=== PATIENT | male | born 1975 | race Caucasian/White ===

== ENCOUNTER → 2021-11-26 12:44 | Outpatient (CLI) | payer OTHER, SELFPAY ==
[2021-11-26 14:04] LABS: Hemoglobin A1C% w Est Avg Glu 9.7 % (4.0-6.0)
[2021-11-26 14:53] LABS: Alanine Aminotransferase 30 IU/L (<50); Albumin 3.9 g/dL (3.5-5.0); Albumin Globulin Ratio 1.7 (1.0-2.8); Alkaline Phosphatase 84 U/L (38-126); Aspartate Aminotransferase 31 IU/L (17-59); BUN Creatinine Ratio 11.8 (6-22); Bilirubin Total 0.6 mg/dL (0.2-1.3); Blood Urea Nitrogen 11 mg/dL (9-20); Carbon Dioxide 28 mmol/L (22-32); Chloride 100 mmol/L (98-107); Cholesterol 143 mg/dL (140-199); Estimated Glomerular Filt Rate > 60 mL/min (>60); Globulin 2.3 g/dL (1.7-4.1); Glucose 212 mg/dL (70-100); HDL Cholesterol 42 mg/dL (40-60); HEMOLYSIS < 15 (0-50); LDL Cholesterol Calculated 73 mg/dL (<100); Potassium 4.4 mmol/L (3.4-5.1); Sodium 137 mmol/L (137-145); Total Protein 6.2 g/dL (6.3-8.2); Triglycerides 139 mg/dL (35-150); Uric Acid 6.6 mg/dL (3.5-8.5)
[2021-11-26 16:06] LABS: Creatinine Urine Random 134.3 mg/dL
[2021-11-26 16:09] LABS: Microalbumi Creatinin Ratio Ur 5.2 ug/mg CR (<30); Microalbumin Urine Random 0.7 mg/dL (0-1.6)
== END ==
PROVIDERS: Family Provider Family Medicine; PCP Internal Medicine; Referring Provider Internal Medicine; Visit Provider Internal Medicine
DX: E11.9 Type 2 diabetes mellitus without complications (principal); I10 Essential (primary) hypertension; M10.9 Gout, unspecified
CPT/HCPCS: 36415; 80053; 80061; 82043; 82570; 83036; 84550

== ENCOUNTER → 2022-04-25 10:15 | Outpatient (CLI) | payer BC, OTHER, SELFPAY ==
[2022-04-25 12:51] LABS: BUN Creatinine Ratio 16.9 (6-22); Blood Urea Nitrogen 13 mg/dL (9-20); Calcium 9.1 mg/dL (8.4-10.2); Carbon Dioxide 28 mmol/L (22-32); Chloride 95 mmol/L (98-107); Estimated Glomerular Filt Rate > 60 mL/min (>60); Glucose 319 mg/dL (70-100); HEMOLYSIS < 15 (0-50); Potassium 3.8 mmol/L (3.4-5.1); Sodium 135 mmol/L (137-145)
[2022-04-25 14:37] LABS: Hemoglobin A1C% w Est Avg Glu 10.9 % (4.0-6.0)
== END ==
PROVIDERS: Family Provider Family Medicine; PCP Internal Medicine; Referring Provider Internal Medicine; Visit Provider Internal Medicine
DX: E11.9 Type 2 diabetes mellitus without complications (principal)
CPT/HCPCS: 36415; 80048; 83036

== ENCOUNTER → 2022-07-29 10:34 | Outpatient (CLI) | payer BC, OTHER, SELFPAY ==
[2022-07-29 12:41] LABS: Blood Urea Nitrogen 13 mg/dL (9-20); Calcium 9.2 mg/dL (8.4-10.2); Carbon Dioxide 32 mmol/L (22-32); Chloride 95 mmol/L (98-107); Estimated Glomerular Filt Rate > 60 mL/min (>60); Glucose 293 mg/dL (70-100); HEMOLYSIS < 15 (0-50); Sodium 135 mmol/L (137-145)
[2022-07-30 09:59] LABS: Labcorp Hemoglobin (Hb) A1c 11.8 % (4.8-5.6)
== END ==
PROVIDERS: Family Provider Family Medicine; PCP Internal Medicine; Referring Provider Internal Medicine; Visit Provider Internal Medicine
DX: E11.9 Type 2 diabetes mellitus without complications (principal); I10 Essential (primary) hypertension; Z79.4 Long term (current) use of insulin
CPT/HCPCS: 80048; 83036

== ENCOUNTER → 2022-11-18 11:09 | Outpatient (CLI) | payer BC, OTHER, SELFPAY ==
[2022-11-18 13:27] LABS: BUN Creatinine Ratio 22.4 (6-22); Blood Urea Nitrogen 17 mg/dL (9-20); Calcium 9.3 mg/dL (8.4-10.2); Carbon Dioxide 28 mmol/L (22-32); Chloride 97 mmol/L (98-107); Estimated Glomerular Filt Rate > 60 mL/min (>60); Glucose 246 mg/dL (70-100); HEMOLYSIS < 15 (0-50); Potassium 3.6 mmol/L (3.4-5.1); Sodium 135 mmol/L (137-145)
[2022-11-20 07:43] LABS: Labcorp Hemoglobin (Hb) A1c 9.8 % (4.8-5.6)
== END ==
PROVIDERS: Family Provider Family Medicine; PCP Internal Medicine; Referring Provider Internal Medicine; Visit Provider Internal Medicine
DX: E11.9 Type 2 diabetes mellitus without complications (principal); I10 Essential (primary) hypertension
CPT/HCPCS: 36415; 80048; 83036

== ENCOUNTER → 2023-05-12 14:18 | Outpatient (CLI) | payer BC, OTHER, SELFPAY ==
[2023-05-12 15:29] LABS: Add Manual Diff / Slide Review NO; Basophils Absolute Auto 0 /uL (0-100); Basophils Percent Auto 0.4 % (0-2); Eosinophils Absolute Auto 100 /uL (0-450); Eosinophils Percent Auto 1.7 % (2-4); Hematocrit 44.4 % (41-53); Hemoglobin 14.7 g/dL (13.5-17.5); Lymphocytes Absolute Auto 1400 /uL (1100-4500); Lymphocytes Percent Auto 24.3 % (25-40); Mean Corpuscular Hemoglobin 29.1 PG (26-34); Mean Corpuscular Volume 88.3 fL (80-100); Monocytes Absolute Auto 500 /uL (0-900); Monocytes Percent Auto 8.8 % (3-14); Neutrophils Absolute Auto 3800 /uL (1500-7000); Neutrophils Percent Auto 64.8 % (50-75); Platelet Count 205 X10^3/uL (150-400); Red Blood Cell Count 5.03 X10^6/uL (4.5-5.9); Red Cell Distribution Width 13.3 % (11.6-14.8); White Blood Cell Count 5.8 X10^3/uL (4.5-11.0)
[2023-05-12 15:41] LABS: Hemoglobin A1C% w Est Avg Glu 9.3 % (4.0-6.0)
[2023-05-12 16:31] LABS: Alanine Aminotransferase 20 IU/L (<50); Albumin 4.2 g/dL (3.5-5.0); Albumin Globulin Ratio 1.4 (1.0-2.8); Alkaline Phosphatase 94 U/L (38-126); Aspartate Aminotransferase 20 IU/L (17-59); BUN Creatinine Ratio 20.3 (6-22); Bilirubin Total 0.7 mg/dL (0.2-1.3); Blood Urea Nitrogen 14 mg/dL (9-20); Calcium 9.4 mg/dL (8.4-10.2); Carbon Dioxide 29 mmol/L (22-32); Chloride 101 mmol/L (98-107); Cholesterol 147 mg/dL (140-199); Estimated Glomerular Filt Rate > 60 mL/min (>60); Globulin 2.9 g/dL (1.7-4.1); Glucose 240 mg/dL (70-100); HDL Cholesterol 56 mg/dL (40-60); HEMOLYSIS < 15 (0-50); LDL Cholesterol Calculated 76 mg/dL (<100); Sodium 136 mmol/L (137-145); Total Protein 7.1 g/dL (6.3-8.2); Triglycerides 74 mg/dL (35-150)
[2023-05-12 16:32] LABS: Potassium 4.3 mmol/L (3.4-5.1)
== END ==
PROVIDERS: Family Provider Family Medicine; PCP Internal Medicine; Referring Provider Internal Medicine; Visit Provider Internal Medicine
DX: E11.65 Type 2 diabetes mellitus with hyperglycemia (principal); Z79.4 Long term (current) use of insulin; I10 Essential (primary) hypertension; E11.9 Type 2 diabetes mellitus without complications
CPT/HCPCS: 36415; 80053; 80061; 82043; 82570; 83036; 85025

== ENCOUNTER → 2023-08-13 09:11 | Outpatient (CLI) | payer BC, SELFPAY ==
[2023-08-13 09:58] LABS: COVID-19 CEPHEID 4-PLEX PCR Negative (Negative); Influenza A - CEPHEID Flu A NEGATIVE (NEGATIVE); Influenza B - CEPHEID Flu B NEGATIVE (NEGATIVE); Respiratory Syncytial Virus Negative (Negative)
== END ==
PROVIDERS: Family Provider Family Medicine; PCP Internal Medicine; Visit Provider Nurse Practitioner Family
DX: R05.1 Acute cough (principal)
CPT/HCPCS: 0241U

== ENCOUNTER → 2023-11-17 15:15 | Outpatient (CLI) | payer MEDICAID, SELFPAY ==
[2023-11-17 17:00] LABS: BUN Creatinine Ratio 14.8 (6-22); Blood Urea Nitrogen 13 mg/dL (9-20); Calcium 9.7 mg/dL (8.4-10.2); Carbon Dioxide 28 mmol/L (22-32); Chloride 102 mmol/L (98-107); Estimated Glomerular Filt Rate > 60 mL/min (>60); Glucose 175 mg/dL (70-100); HEMOLYSIS < 15 (0-50); Potassium 4.3 mmol/L (3.4-5.1); Sodium 137 mmol/L (137-145)
[2023-11-17 21:33] LABS: Hemoglobin A1C% w Est Avg Glu 9.4 % (4.0-6.0)
== END ==
PROVIDERS: Family Provider Family Medicine; PCP Internal Medicine; Referring Provider Internal Medicine; Visit Provider Internal Medicine
DX: E11.65 Type 2 diabetes mellitus with hyperglycemia (principal); Z79.4 Long term (current) use of insulin; I10 Essential (primary) hypertension
CPT/HCPCS: 36415; 80048; 83036

== ENCOUNTER → 2024-02-16 10:10 | Outpatient (CLI) | payer OTHER, MEDICAID, SELFPAY ==
--- NOTE | 2024-02-16 10:13 | DI.RAD.S_ITS ---
PROCEDURE: XR LUMBAR SPINE 2-3V INDICATIONS: L4-5 pain/tender+ ant thigh pain/numb no injury TECHNIQUE: 3 views of the lumbar spine were acquired. COMPARISON: None. FINDINGS: Bones: 5 [id number] vertebrae are present. There is normal bony alignment. No vertebral body compression fractures. No suspicious bony lesions. Mild multilevel degenerative disc disease. Soft tissues: Overlying bowel gas pattern is normal. No suspicious soft tissue calcifications. IMPRESSION: No acute bony abnormality. Dictated by: Chana Perales MD, PhD on 02/16/2024 at 10:37 Approved by: Chana Perales MD, PhD on 02/16/2024 at 10:38
== END ==
PROVIDERS: Family Provider Family Medicine; PCP Internal Medicine; Referring Provider Student in an Organized Health Care Education/Training Program; Visit Provider Student in an Organized Health Care Education/Training Program
DX: M51.16 Intervertebral disc disorders with radiculopathy, lumbar region (principal)
CPT/HCPCS: 72100

== ENCOUNTER → 2024-04-08 14:22 | Outpatient (CLI) | payer MEDICAID, SELFPAY ==
--- NOTE | 2024-04-08 17:39 | DIAB.MNT ---
Initial Diabetes Medical Nutrition Therapy Assessment Name: Lucas Spears (Lalo) Dx: Type II Diabetes Date: 04/08/24 Time: 3-4p Dx: Type II Diabetes Provider: Angel Rosales Learning Style: Watching Lalo presents for initial DM visit. Reports PMH of DM x 20 years and FH of DM with both parents and paternal grandmother. [facility] [place] this was helpful. He liked discussing portions. He is interested in CGM. Will place a sample G7 today. Also reports his meter is not working, often getting ERROR messages. Provided a demo today, and suspect the error message may be from inadequate blood sample. After fingerstick and meter demo, BG was 146 after not eating anything since last night. Currently on MDI with recent hgA1c in the 9-9.8% over the last year.. Diet Recall: 12-1p: leftovers or sugar sweetened cereal (does not like cheerios) sn: nothing or fruit 6-7p: burger and fries homemade or PRO with veggies and 2c CHO sn: nothing or cereal or strawberry ice cream water 16.9oz x 2 coke zero milk occasional Anthropometrics: Ht: 69 Wt: 277.5# 02/2024 Physical Activity: Reports activity with [employer], ie bowling, bocci ball, basketball Self-Monitoring Blood Glucose: None recently. Has supplies. brought today. Returned demo with success. Helped with self placement of CGM sample. Reports difficulty getting this covered with MCR. Likely needs DME. Diabetes Medications: 1000mg Metformin BID 70u Lantus 7u Lispro TID 30mg Pioglitizone Pertinent Labs: HgA1c: 9.4% 10/2023 Past Medical History: (Last Reviewed 02/16/24 @ 12:03 by Elizabeth Gordon PA-C) Autism Essential hypertension Gout Long-term insulin use Tourette syndrome Type 2 diabetes mellitus Nutrition Rx: Carbohydrates: Meal:45-60g Snack:15-30g Nutrition Diagnosis: - Excessive CHO intake r/t nutrition knowledge deficit aeb diet recall Intervention: This participant was very receptive. Provided appropriate educational handouts. Discussed the following topics: Completed intake assessment. Discussed barriers to care. SMBG return demo, importance of amt of blood sample to avoid error CGM Sample Reviewed CGM use and equipment Discussed when to check blood sugars using finger stick Reviewed high and low blood sugar signs/symptoms and treatment options Provided education for self-administration of CGM placement Educated patient on alarm settings Discussed how to remove and dispose of equipment Plate Method, impact of macronutrients on blood sugar Recommended servings for carbohydrates at meals and snacks Created SMART goals for patient self-care and success. Goals: Wear CGM x 10.5 days Try breakfast with toast and PB or eggs vs cereal Try to keep CHO to 1-1.5 at meals Follow-up: [facility] follow-up in 2-3 weeks Juana Klein RDN, SHARONA Certified Diabetes Care and Training Executive P: [phone] Thank you for this referral
== END ==
PROVIDERS: Family Provider Internal Medicine; PCP Internal Medicine; Referring Provider Internal Medicine
DX: E11.9 Type 2 diabetes mellitus without complications (principal); Z83.3 Family history of diabetes mellitus; Z71.3 Dietary counseling and surveillance; Z79.84 Long term (current) use of oral hypoglycemic drugs; Z79.4 Long term (current) use of insulin
CPT/HCPCS: 97802

== ENCOUNTER → 2024-04-28 12:29 | Outpatient (CLI) | payer MEDICAID, OTHER, SELFPAY ==
--- NOTE | 2024-06-10 07:54 | DIAB.MNTFU ---
Follow-up Diabetes Medical Nutrition Therapy Assessment Name: Lucas Spears (Lalo) Date: 04/28/24 Time: 1-130p Dx: Type II Diabetes Lalo presents for follow-up DM visit. Reports PMH of DM x 20 years and FH of DM with both parents and paternal grandmother. Previous DM education at [facility]. [place] this was helpful. He liked discussing portions. Liked CGM, states [address] company called him. Some barriers to getting personal CGM with insurance changes. Did have a low with CGm, but seems it was a false low. He called EMS and was found to not have hypoglycemia. Has changed his breakfast as discussed 2-3 days per week, reducing cereal intake. Did not have new HgA1c orders at the time of this visit. RD messaged PCP ETTA regarding this. UTD on eye exam and had a suspicious right eye finding. Has f/u this month with video specialist. Diet Recall: 12-1p:PB toast OR cereal sn: nothing or fruit 6-7p: 2 hot dogs OR leftovers OR bbq ribs with 0.5c potatoes and 2 TBS corn 10: nothing or large bowl cereal or 4 TBSstrawberry ice cream water 16.9oz x 2 coke zero milk occasional Anthropometrics: Ht: 69 Wt: 277.5# 02/2024 Physical Activity: walking 2-3x per week for 2 hours or yardwork Self-Monitoring Blood Glucose: Frequent elevations, especially after meals. Lows seem to be r/t false lows with sensor error toward the end of wear. TIR: 15% very [id number] high 46% in range 2% low 3% very low avmg/dl GMI: 7.5% std dev: 68 mg/dl variance: 38.4% Diabetes Medications: 1000mg Metformin BID 70u Lantus 7u Lispro TID 30mg Pioglitizone Pertinent Labs: HgA1c: 9.4% 10/2023 Past Medical History: (Last Reviewed 02/16/24 @ 12:03 by Elizabeth Gordon PA-C) Autism Essential hypertension Gout Long-term insulin use Tourette syndrome Type 2 diabetes mellitus Nutrition Rx: Carbohydrates: Meal:45-60g Snack:15-30g Nutrition Diagnosis: - Excessive CHO intake r/t nutrition knowledge deficit aeb diet recall- in progress Intervention: This participant was very receptive. Provided appropriate educational handouts. Discussed the following topics: Rule of 15 for lows and false lows recognition and using meter to verify Insulin recs per meal (small, med, large) to cover elevations HgA1c hx and goal Recommended servings for carbohydrates at meals and snacks Created SMART goals for patient self-care and success. Goals: Wear CGM x 10.5 days- met Try breakfast with toast and PB or eggs vs cereal- met Try to keep CHO to 1-1.5 at meals - met Try small, med, large insulin dose at meals- new Avoid cereal- new Provide ADS with new insurance info- new Follow-up: [facility] follow-up in 3-4 weeks Juana Klein RDN, SHARONA Certified Diabetes Care and Informatica Architect P: [phone] Thank you for this referral
== END ==
PROVIDERS: Family Provider Internal Medicine; PCP Internal Medicine; Referring Provider Internal Medicine
DX: E11.9 Type 2 diabetes mellitus without complications (principal); Z83.3 Family history of diabetes mellitus; Z79.84 Long term (current) use of oral hypoglycemic drugs; Z79.4 Long term (current) use of insulin; Z71.3 Dietary counseling and surveillance
CPT/HCPCS: 97803

== ENCOUNTER → 2024-05-12 10:09 | Outpatient (CLI) | payer OTHER, MEDICAID, SELFPAY ==
[2024-05-12 11:13] LABS: Hemoglobin A1C% w Est Avg Glu 8.4 % (4.0-6.0)
[2024-05-12 11:14] LABS: BUN Creatinine Ratio 13.8 (6-22); Blood Urea Nitrogen 12 mg/dL (9-20); Calcium 9.2 mg/dL (8.4-10.2); Carbon Dioxide 33 mmol/L (22-32); Chloride 98 mmol/L (98-107); Estimated Glomerular Filt Rate > 60 mL/min (>60); Glucose 282 mg/dL (70-100); HEMOLYSIS < 15 (0-50); Potassium 4.3 mmol/L (3.4-5.1); Sodium 137 mmol/L (137-145)
== END ==
PROVIDERS: Family Provider Internal Medicine; PCP Internal Medicine; Referring Provider Internal Medicine; Visit Provider Internal Medicine
DX: E11.65 Type 2 diabetes mellitus with hyperglycemia (principal); Z79.4 Long term (current) use of insulin; I10 Essential (primary) hypertension
CPT/HCPCS: 36415; 80048; 83036

== ENCOUNTER → 2024-06-09 16:41 | Outpatient (CLI) | payer MEDICAID, SELFPAY ==
[2024-06-09 17:20] LABS: Add Manual Diff / Slide Review NO; Basophils Absolute Auto 100 /uL (0-100); Basophils Percent Auto 1.5 % (0-2); Eosinophils Absolute Auto 100 /uL (0-450); Eosinophils Percent Auto 1.6 % (2-4); Hematocrit 44.5 % (41-53); Hemoglobin 14.5 g/dL (13.5-17.5); Lymphocytes Absolute Auto 1400 /uL (1100-4500); Lymphocytes Percent Auto 23.1 % (25-40); Mean Corpuscular HGB Conc 32.7 % (30-36); Mean Corpuscular Hemoglobin 28.6 PG (26-34); Mean Corpuscular Volume 87.6 fL (80-100); Monocytes Absolute Auto 500 /uL (0-900); Neutrophils Absolute Auto 4100 /uL (1500-7000); Neutrophils Percent Auto 65.8 % (50-75); Platelet Count 263 X10^3/uL (150-400); Red Blood Cell Count 5.08 X10^6/uL (4.5-5.9); Red Cell Distribution Width 13.1 % (11.6-14.8); White Blood Cell Count 6.2 X10^3/uL (4.5-11.0)
[2024-06-09 17:36] LABS: Alanine Aminotransferase 43 IU/L (<50); Albumin Globulin Ratio 1.7 (1.0-2.8); Alkaline Phosphatase 76 U/L (38-126); Aspartate Aminotransferase 35 IU/L (17-59); BUN Creatinine Ratio 9.1 (6-22); Bilirubin Total 1.1 mg/dL (0.2-1.3); Blood Urea Nitrogen 8 mg/dL (9-20); Calcium 9.4 mg/dL (8.4-10.2); Carbon Dioxide 32 mmol/L (22-32); Chloride 101 mmol/L (98-107); Estimated Glomerular Filt Rate > 60 mL/min (>60); Globulin 2.4 g/dL (1.7-4.1); Glucose 255 mg/dL (70-100); HEMOLYSIS < 15 (0-50); Potassium 4.3 mmol/L (3.4-5.1); Sodium 138 mmol/L (137-145); Total Protein 6.4 g/dL (6.3-8.2)
[2024-06-09 17:41] LABS: Erythrocyte Sedimentation Rate 9 MM/HR (0-15)
== END ==
LOC: LAB 16:42
PROVIDERS: Family Provider Internal Medicine; PCP Internal Medicine; Referring Provider Physician Assistant; Visit Provider Physician Assistant
DX: K52.9 Noninfective gastroenteritis and colitis, unspecified (principal)
CPT/HCPCS: 36415; 80053; 85025; 85651

== ENCOUNTER → 2024-06-21 13:41 | Outpatient (CLI) | payer MEDICARE, MEDICAID, SELFPAY ==
--- NOTE | 2024-06-21 14:06 | DIAB.MNTFU ---
Addendum entered by Juana Klein 06/21/24 15:00: Also reported expensive cost for CGM. GONSALO messaged [employer] for more information. Original Note: Follow-up Diabetes Medical Nutrition Therapy Assessment Name: Lucas Spears (Lalo) Date: 06/21/24 Time: 205-235p Dx: Type II Diabetes Lalo presents for follow-up DM visit. Reports PMH of DM x 20 years and FH of DM with both parents and paternal grandmother. Discontinued Metformin and recent BM issues have resolved. Plans to start Jardiance, will pickling drum operator today, is affordable. Trying to inject insulin according to meal size, ie small, med, large Cut down on cereal portion, but still eating regularly Reports still unable to access CGM due to cost. GONSALO messaged [employer] for info. Reports he is aware of potential SE with SGLT2i after chatting with Susan. Diet Recall: 12-1p: PB toast OR 2x per week cereal (raisin bran, shredded wheat, great grains) OR egg with nur/ham +/- bread sn: nothing or fruit 6-7p: chicken, rice or noodles or potatoes x 1c OR 1-2 hamburger +/- potatoes OR 2 hot dogs 10: 1c strawberry ice cream water 16.9oz x 2 coke zero milk occasional Anthropometrics: Ht: 69 Wt: 277.5# 02/2024 Physical Activity: walking 2-3x per week for 2 hours, yardwork, just finished up basketball, and starting track and field and bocce ball. Self-Monitoring Blood Glucose: Checking mid morning BG (low 200s) and 4 hours after eating (200-300). Previous Visit TIR: 15% very [id number] high 46% in range 2% low 3% very low avmg/dl GMI: 7.5% std dev: 68 mg/dl variance: 38.4% Diabetes Medications: 1000mg Metformin BID--- discontinued 70u Lantus 20u Lispro TID 30mg Pioglitizone 25mg Jardiance -- will start Pertinent Labs: HgA1c: 9.4% 10/2023 8.4% 04/2024 Past Medical History: (Last Reviewed 02/16/24 @ 12:03 by Elizabeth Gordon PA-C) Autism Essential hypertension Gout Long-term insulin use Tourette syndrome Type 2 diabetes mellitus Nutrition Rx: Carbohydrates: Meal:45-60g Snack:15-30g Nutrition Diagnosis: - Excessive CHO intake r/t nutrition knowledge deficit aeb diet recall- in progress Intervention: This participant was very receptive. Provided appropriate educational handouts. Discussed the following topics: Avoiding high sugar cereal SE with SGLT2i and importance of hydration Carb recs per meal Protein at meals/snacks Meal timing BG monitoring Created SMART goals for patient self-care and success. Goals: Try small, med, large insulin dose at meals- met Avoid cereal- not met Provide ADS with new insurance info- met Cut out raisin bran- new Try to have a 3p snack with protein- new rigger supervisor Jardiance- new Keep carbs to 1c or less at meals- new Aim for 3-4 water bottles per day- new Check FBG- new Follow-up: [facility] follow-up in 3-4 weeks Juana Klein RDN, SHARONA Certified Diabetes Care and Physician In Private Practice P: [phone] Thank you for this referral
== END ==
PROVIDERS: Family Provider Internal Medicine; PCP Internal Medicine; Referring Provider Internal Medicine
DX: E11.9 Type 2 diabetes mellitus without complications (principal); Z71.3 Dietary counseling and surveillance; Z83.3 Family history of diabetes mellitus; Z79.4 Long term (current) use of insulin; Z79.84 Long term (current) use of oral hypoglycemic drugs
CPT/HCPCS: 97803

== ENCOUNTER → 2024-08-31 13:46 | Outpatient (CLI) | payer MEDICARE, MEDICAID, SELFPAY ==
--- NOTE | 2024-08-31 14:02 | DIAB.FU ---
Follow-up: Personal CGM Placement Name: Lucas Spears (Lalo) Date: 08/31/24 Time: 2-230p Dx: Type II Diabetes Lalo presents for follow-up DM visit. Started Jardiance. No SE. States he is unsure if he and his provider have explored GLP1 rx. Has scheduled with endo but first available appt is March. Recent increase in hgA1c to 11.2%. Has not been wearing CGM due to troubleshooting access with insurance. Has now been approved. Brought in today for placement. States he has questions about insulin pumps since his friend has one. Endorses adequate support from his uncle at home, in learning pump use. This RD thinks he would be able to manage either Omnipod or 780g Medtronic pump, leaning toward 780g with ease of access to equipment and support. Does seem like he may first benefit from trial of GLP1, though he would like to explore the pump option to reduce injections. RD has messaged PCP this information. States he is rotating injection sites on abdomen. Denies any scar tissue at this time. Lalo has made diet and exercise changes since recent hgA1c. Diet Recall: 12-1p: Soup +/- apple 6-7p: chicken, rice or noodles or potatoes x 1c with corn or green beans or cabbage 10-11p: melon 2c or apple or banana water coke zero milk 8oz with meals Anthropometrics: Ht: 69 Wt: 281# 07/2024 277.5# 02/2024 Physical Activity: walking 2x per day for 1 hour, yardwork, just finished up track and field and [employer]. Self-Monitoring Blood Glucose: Checking FBG and ranging from 150-400mg/dl, often 200s per report. Brought personal CGm and reciever. Phone recently broke. Needs assistance programming blood bank manager and re-education on CGM placement/pairing. Diabetes Medications: 70u Lantus 20u Lispro 2-3x per day 30mg Pioglitizone 25mg Jardiance Pertinent Labs: HgA1c: 9.4% 10/2023 8.4% 04/2024 11.2% 06/2024 Past Medical History: (Last Reviewed 02/16/24 @ 12:03 by Elizabeth Gordon PA-C) Autism Essential hypertension Gout Long-term insulin use Tourette syndrome Type 2 diabetes mellitus Intervention: This participant was very receptive. Provided appropriate educational handouts. Discussed the following topics: CGM education and precautions, using blood bank manager Pairing CHO and protein GLP1 action and SE SGLT2i action and SE Rotating injection sites Insulin pump options Created SMART goals for patient self-care and success. Goals: Cut out raisin bran- met Try to have a 3p snack with protein- not met rigging up worker Jardiance- met Keep carbs to 1c or less at meals- met Aim for 3-4 water bottles per day- not discussed Check FBG- met Pair CHO and protein at HS snack- new Use blood bank manager for CGM until new phone- new Follow-up: [facility] follow-up in 2-3 weeks Juana Klein RDN, SHARONA Certified Diabetes Care and Cloth Feeder P: [phone] Thank you for this referral
== END ==
LOC: DIET 13:47
PROVIDERS: Family Provider Internal Medicine; PCP Internal Medicine
DX: E11.9 Type 2 diabetes mellitus without complications (principal); Z79.84 Long term (current) use of oral hypoglycemic drugs; Z79.4 Long term (current) use of insulin; Z71.3 Dietary counseling and surveillance
CPT/HCPCS: 95249

== ENCOUNTER → 2024-09-22 12:56 | Outpatient (CLI) | payer MEDICARE, SELFPAY ==
--- NOTE | 2024-09-22 13:36 | DIAB.FU ---
Follow-up Diabetes Education Assessment Name: Lucas Spears (Lalo) Date: 09/22/24 Time: 130-225p Dx: Type II Diabetes Lalo presents for follow-up DM visit. Has seen PCP since our last visit. Rx'd Ozempic, but was not affordable for him at $100 per month. Today we called his pharmacy to discuss cost. Pharmacy reports first dose would be $100 for almost two months. They are using his MCR coverage, they do not have his LEAH info. Per PCP notes and pt report, PCP not comfortable coordinating with DM ed on starting insulin pump. Has an endo appt via [facility] in March. PCP sent a new referral for a sooner visit at end of September with [facility] in [facility]. Plans to discuss GLP1 and Omnipod at this visit. Has been interested in pump therapy due to a friend having a pump. Endorses adequate support from his uncle at home in learning insulin pump therapy. Reports similar diet recall as previous visits. Per diet recall, averaging 30-60g CHO per meal. Not excessive. Endorses rotating injection sites and overall good technique described. Anthropometrics: Ht: 69 Wt: 288# 08/2024 281# 07/2024 277.5# 02/2024 Physical Activity: walking 2x per day for 1 hour, yardwork and bocce ball. Self-Monitoring Blood Glucose: Very low and low readings may not all be entirely accurate. This occurred on a day for most of the day, and then the following day the sensor stopped recording consistently. Does reports one occurrence of feeling low and shaky, treated with a cookie. Did not confirm any lows with a finger stick. Has not made any drastic changes to insulin or diet that would have predicted lows. TIR: 34% very high 24% high 37% in range 3% low 2% very low avmg/dl std dev: 102mg/dl variance: 47.3% Diabetes Medications: 70u Lantus 20u Lispro 2-3x per day 30mg Pioglitizone 25mg Jardiance Pertinent Labs: HgA1c: 9.4% 10/2023 8.4% 04/2024 11.2% 06/2024 Past Medical History: (Last Reviewed 02/16/24 @ 12:03 by Elizabeth Gordon PA-C) Autism Essential hypertension Gout Long-term insulin use Tourette syndrome Type 2 diabetes mellitus Intervention: This participant was very receptive. Provided appropriate educational handouts. Discussed the following topics: Troubleshooting GLP1 cost Rule of 15 review for treating lows Injection technique Ozempic SE, benefits, weekly injection technique Created SMART goals for patient self-care and success. Goals: Pair CHO and protein at HS snack- in progress Use media marketing coordinator for CGM until new phone- met Use Rule of 15 for lows- new Try fingersticks to confirm lows- new See endo in September- new Take LEAH info to [facility] pharmacy- new If picking up ozempic, take once per week - new Follow-up: [facility] follow-up in 4 weeks after endo and PCP visit. Encouraged him to call or message for sooner f/u prn. Juana Klein RDN, SHARONA Certified Diabetes Care and Web Press Operator Helper Offset P: [phone] Thank you for this referral
== END ==
PROVIDERS: Family Provider Internal Medicine; PCP Internal Medicine; Referring Provider Internal Medicine
DX: E11.9 Type 2 diabetes mellitus without complications (principal); Z79.84 Long term (current) use of oral hypoglycemic drugs; Z79.4 Long term (current) use of insulin; Z71.3 Dietary counseling and surveillance
CPT/HCPCS: G0108

== ENCOUNTER → 2024-12-27 09:04 | Outpatient (CLI) | payer MEDICARE, MEDICAID, SELFPAY ==
--- NOTE | 2024-12-30 10:03 | DIAB.FU ---
Follow-up Diabetes Education Assessment Name: Lucas Spears (Lalo) Date: 12/27/24 Time: 10-11a Dx: Type II Diabetes Lalo presents for follow-up DM visit. Brought Omnipod for insulin pump start today. Took basal insulin injection last night, will set activity mode to reduce lows for the next 8.5 hours. Settings from endo: based on TDD: 93u basal rate: 1.9u/ hour Max basal rate: 3.8u/hour Target and correct above: 110mg/dl IC: 5g/u ISF: 18mg/dl/u Insulin action: 3 hours Max bolus: 25u Anthropometrics: Ht: 69 Wt: 291#10/2024 289# 10/2024 288# 08/2024 281# 07/2024 277.5# 02/2024 Physical Activity: walking 2x per day for 1 hour, yardwork and bocce ball. Self-Monitoring Blood Glucose: I Last TIR: 16% very high 28% high 56% in range 0% low 0% very low avmg/dl std dev: 66mg/dl variance: 37.2% Diabetes Medications: 70u Lantus --- d/c 20u Lispro 2-3x per day --- d/c 30mg Pioglitizone 25mg Jardiance 0.5mg Ozempic Lispro via pump- new Pertinent Labs: HgA1c: 9.4% 10/2023 8.4% 04/2024 11.2% 06/2024 Past Medical History: (Last Reviewed 02/16/24 @ 12:03 by Elizabeth Gordon PA-C) Autism Essential hypertension Gout Long-term insulin use Tourette syndrome Type 2 diabetes mellitus Intervention: This participant was very receptive. Provided appropriate educational handouts. Discussed the following topics: OP5 set up, precautions, bolusing, basal rate, and connection to CGM Created SMART goals for patient self-care and success. Goals: Bring phone with email access- met Download apps (OP5 and Dexcom G7)- met Wear OP5 system- new Follow-up: [facility] follow-up in 1 day over phone, 3 days in person and in 1 week. Juana Klein RDN, SHARONA Certified Diabetes Care and Supervisor Inventory Merchandising P: [phone] Thank you for this referral
== END ==
PROVIDERS: Family Provider Internal Medicine; PCP Internal Medicine; Referring Provider Internal Medicine
DX: Z46.81 Encounter for fitting and adjustment of insulin pump (principal); E11.9 Type 2 diabetes mellitus without complications; Z71.3 Dietary counseling and surveillance; Z79.4 Long term (current) use of insulin; Z79.84 Long term (current) use of oral hypoglycemic drugs; Z79.85 Long-term (current) use of injectable non-insulin antidiabetic drugs
CPT/HCPCS: G0108

== ENCOUNTER → 2025-01-03 11:25 | Outpatient (CLI) | payer MEDICARE, MEDICAID, SELFPAY ==
--- NOTE | 2025-01-03 16:38 | DIAB.FU ---
Follow-up Diabetes Education Assessment Name: Lucas Spears (Lalo) Date: 01/03/25 Time: 1130-12 Dx: Type II Diabetes Lalo presents for follow-up DM visit. Started on OP5/Dexcom G7 system x1 week. Improved TIR with OP5, though still having excessive elevations postprandially. RD predicts this is from under bolusing, but is not able to see glooko report yet. Will try to connect today. Has had one pod fall off, placement issue. Today we reviewed some technique recs. Overall, he is enjoying using OP5. Brought one today for review of placement. Needs review of sharps disposal. Sees endo 02/21 per report. Settings from endo: based on TDD: 93u basal rate: 1.9u/ hour Max basal rate: 3.8u/hour Target and correct above: 110mg/dl IC: 5g/u ISF: 18mg/dl/u Insulin action: 3 hours Max bolus: 25u Anthropometrics: Ht: 69 Wt: 291#10/2024 289# 10/2024 288# 08/2024 281# 07/2024 277.5# 02/2024 Physical Activity: walking 2x per day for 1 hour, yardwork and bocce ball. Self-Monitoring Blood Glucose: Improvee TIR but still having excessive time above goal. Will work on bolusing behaviors. GMI much improved compared to last hgA1c. TIR: 10% very high 25% high 65% in range 0% low 0% very low avmg/dl GMI: 7.5% std dev: 50mg/dl variance: 28.6% Last TIR: 16% very high 28% high 56% in range 0% low 0% very low avmg/dl std dev: 66mg/dl variance: 37.2% Diabetes Medications: 30mg Pioglitizone 25mg Jardiance 0.5mg Ozempic Lispro via pump Pertinent Labs: HgA1c: 9.4% 10/2023 8.4% 04/2024 11.2% 06/2024 Past Medical History: (Last Reviewed 02/16/24 @ 12:03 by Elizabeth Grodon PA-C) Autism Essential hypertension Gout Long-term insulin use Tourette syndrome Type 2 diabetes mellitus Intervention: This participant was very receptive. Provided appropriate educational handouts. Discussed the following topics: OP5 technique for placement, bolusing for correction Troubleshooting for pod placement and replacing pods CGM connection Sharps disposal Created SMART goals for patient self-care and success. Goals: Wear OP5 system- met equipment superintendent alcohol swabs- new use sharps container- new Implement bolus corrections- new Follow-up: [facility] follow-up over the phone in three days (more often prn) and 1:1 in-person in 3 weeks Juana Klein RDN, SHARONA Certified Diabetes Care and Engraving Plate Maker P: [phone] Thank you for this referral
== END ==
PROVIDERS: Family Provider Internal Medicine; PCP Internal Medicine; Referring Provider Internal Medicine
DX: E11.9 Type 2 diabetes mellitus without complications (principal); Z71.3 Dietary counseling and surveillance; Z79.84 Long term (current) use of oral hypoglycemic drugs; Z79.4 Long term (current) use of insulin; Z79.85 Long-term (current) use of injectable non-insulin antidiabetic drugs; Z96.41 Presence of insulin pump (external) (internal)
CPT/HCPCS: G0108

== ENCOUNTER → 2025-01-26 12:36 | Outpatient (CLI) | payer MEDICARE, MEDICAID, SELFPAY ==
--- NOTE | 2025-03-02 16:05 | DIAB.FU ---
Follow-up Diabetes Education Assessment Name: Lucas Spears (Lalo) Date: 01/26/25 Time: 105-140p Dx: Type II Diabetes Lalo presents for follow-up DM visit. Continues on OP5. Main agenda today was to connect him to [facility], however his phone before we could connect his account. Tried connecting over the phone, however, this was challenging for him. Sees endo end of Oct. using correction and custom foods to bolus. Was out of CGM for a while, but now back on CGM. Settings from endo: based on TDD: 93u basal rate: 1.9u/ hour Max basal rate: 3.8u/hour Target and correct above: 110mg/dl IC: 5g/u ISF: 18mg/dl/u Insulin action: 3 hours Max bolus: 25u Anthropometrics: Ht: 69 Wt: 291#10/2024 289# 10/2024 288# 08/2024 281# 07/2024 277.5# 02/2024 Physical Activity: walking 2x per day for 1 hour, yardwork and bocce ball. Self-Monitoring Blood Glucose: TIR indicates excessive time above goal. Reduced time in range since last visit. TIR: 15% very high 42% high 43% in range 0% low <1% very low avmg/dl GMI: 8% std dev: 53mg/dl variance: 27% Last TIR: 10% very high 25% high 65% in range 0% low 0% very low avmg/dl GMI: 7.5% std dev: 50mg/dl variance: 28.6% Diabetes Medications: 30mg Pioglitizone 25mg Jardiance 0.5mg Ozempic Lispro via pump Pertinent Labs: HgA1c: 9.4% 10/2023 8.4% 04/2024 11.2% 06/2024 Past Medical History: (Last Reviewed 02/16/24 @ 12:03 by Elizabeth Gordon PA-C) Autism Essential hypertension Gout Long-term insulin use Tourette syndrome Type 2 diabetes mellitus Intervention: This participant was very receptive. Provided appropriate educational handouts. Discussed the following topics: Troubleshooting for connection to glooko and [facility]central Review of bolusing behaviors Discussed adding G7 to OP5 PDM Encouraged using alcohol swabs for pump/cgm placement Reviewed sharps disposal Created SMART goals for patient self-care and success. Goals: biodiesel plant superintendent alcohol swabs- in progress use sharps container- not met Implement bolus corrections- met Add G7 info to PDM- new Follow-up: [facility] follow-up 3-4 weeks. Juana Klein RDN, SHARONA Certified Diabetes Care and Oracle Fusion Middleware Developer P: [phone] Thank you for this referral
== END ==
LOC: DIET 12:36
PROVIDERS: Family Provider Internal Medicine; PCP Internal Medicine; Referring Provider Internal Medicine
DX: E11.9 Type 2 diabetes mellitus without complications (principal); Z71.3 Dietary counseling and surveillance; Z96.41 Presence of insulin pump (external) (internal); Z79.4 Long term (current) use of insulin; Z79.84 Long term (current) use of oral hypoglycemic drugs; Z79.85 Long-term (current) use of injectable non-insulin antidiabetic drugs
CPT/HCPCS: G0108

== ENCOUNTER → 2025-02-28 08:33 | Outpatient (CLI) | payer MEDICARE, SELFPAY ==
[2025-02-28 09:19] LABS: Hemoglobin A1C% w Est Avg Glu 7.6 % (4.0-6.0)
== END ==
PROVIDERS: Family Provider Internal Medicine; PCP Internal Medicine; Referring Provider Nurse Practitioner Family; Visit Provider Nurse Practitioner Family
DX: E11.65 Type 2 diabetes mellitus with hyperglycemia (principal); Z79.4 Long term (current) use of insulin
CPT/HCPCS: 36415; 83036

== ENCOUNTER → 2025-03-21 13:22 | Outpatient (CLI) | payer MEDICARE, SELFPAY ==
--- NOTE | 2025-04-13 10:39 | DIAB.FU ---
Follow-up Diabetes Education Assessment Name: Lucas Spears (Lalo) Date: 03/21/25 Time: 150-245p Dx: Type II Diabetes Lalo presents for follow-up DM visit. Improved hgA1c. Continues on OP5/DexG7 system. Main agenda today is to connect to [employer] so reports are viewable. He is using custom foods for bolusing. Saw endo last month. Reports a change in IC ratio. Reviewing reports, ISF also modified to help improve hyperglycemia. Endorses needing help with connection of G7 to OP5 system. Running in manual mode as a result of this barrier. Has rx for 1mg Ozempic, though only taking 0.5mg still. Settings from endo: based on TDD: 93u--- 51.6 basal rate: 1.9u/ hour Max basal rate: 3.8u/hour Target and correct above: 110mg/dl IC: 5g/u--- 4 ISF: 18mg/dl/u-- 16 Insulin action: 3 hours Max bolus: 25u Anthropometrics: Ht: 69 Wt: 291#10/2024 289# 10/2024 288# 08/2024 281# 07/2024 277.5# 02/2024 Physical Activity: walking 2x per day for 1 hour, yardwork and bocce ball. Self-Monitoring Blood Glucose: TIR indicates excessive time above goal, but improved overall glucose. TIR: 4% very high 34% high 62% in range 0% low 0% very low avmg/dl GMI: % std dev: 42mg/dl variance: 24.7% Last TIR: 15% very high 42% high 43% in range 0% low <1% very low avmg/dl GMI: 8% std dev: 53mg/dl variance: 27% Diabetes Medications: 30mg Pioglitizone 25mg Jardiance 0.5mg Ozempic (rx for 1mg) Lispro via pump Pertinent Labs: HgA1c: 9.4% 10/2023 8.4% 04/2024 11.2% 06/2024 7.6% 02/2025 Past Medical History: (Last Reviewed 02/16/24 @ 12:03 by Elizabeth Gordon PA-C) Autism Essential hypertension Gout Long-term insulin use Tourette syndrome Type 2 diabetes mellitus Intervention: This participant was very receptive. Provided appropriate educational handouts. Discussed the following topics: Troubleshooting for connection to [facility] and [facility] with success Reviewed Ozempic dosing Discussed low glucose s/s and treatment Reviewed manual vs auto mode in pump Discussed correction bolusing Reviewed how to connect CGM to OP5 each time changed Created SMART goals for patient self-care and success. Goals: Add G7 info to PDM- not met Increase to rx of ozempic- new Connect CGM to PDM each time- new Stay in automation as much as possible- new Treat lows as discussed prn- new Follow-up: [facility] follow-up in 3 weeks Juana Klein RDN, MALAES Certified Diabetes Care and Card Writer Hand P: [phone] Thank you for this referral
== END ==
LOC: DIET 13:23
PROVIDERS: PCP Internal Medicine; Referring Provider Internal Medicine
DX: E11.9 Type 2 diabetes mellitus without complications (principal); Z71.3 Dietary counseling and surveillance; Z79.84 Long term (current) use of oral hypoglycemic drugs; Z79.85 Long-term (current) use of injectable non-insulin antidiabetic drugs; Z96.41 Presence of insulin pump (external) (internal); Z79.4 Long term (current) use of insulin
CPT/HCPCS: G0108